=== PATIENT | male | born 1985 | race African-American/Black ===

== ENCOUNTER 2016-10-09 04:32 | Inpatient (IN) | payer MEDICAID ==
[~2016-10-09] VITALS: Ht 165.1 cm; Wt 66.7 kg
[2016-10-09] MEDS ORDERED: SODIUM CHLORIDE 0.9% 1,000 ML IV ONE (05:22)
[2016-10-09] MEDS ORDERED: SODIUM CHLORIDE FLUSH 10ML SYR IVF ONE (05:30)
[2016-10-09] MEDS ORDERED: ACETAMINOPHEN 325 MG TABLET PO ONE (05:30)
[2016-10-09] MEDS ORDERED: ACETAMINOPHEN 325 MG TABLET ONE (05:56)
[2016-10-09] MEDS ORDERED: CEFTRIAXONE PMX 1GM/50ML 50 ML IVPB ONE (06:00)
[2016-10-09] MEDS ORDERED: AZITHROMYCIN 500 MG in SODIUM CHLORIDE 0.9% 250 ML IV ONE (06:00)
[2016-10-09 06:43] LABS: HEMOGLOBIN 11.6 g/dL (13.7-18.0)
[2016-10-09 06:54] LABS: ASPARTATE AMINO TRANSFERASE 18 U/L (15-37); BLOOD UREA NITROGEN 14 mg/dL (7-18)
[2016-10-09 07:09] LABS: IS PT STATUS REG ER OR PRE ER? YES
[2016-10-09] MEDS ORDERED: SODIUM CHLORIDE FLUSH 10ML SYR IVF PRN (07:30)
[2016-10-09] MEDS: NS + 20MEQ KCL 1,000 ML IV SCH ×3 (07:43→23:43)
[2016-10-09] MEDS ORDERED: DOCUSATE 100 MG CAPSULE PO PRN (08:00)
[2016-10-09] MEDS ORDERED: POLYETHYLENE GLYCOL 17 GM PACKET PO PRN (08:00)
[2016-10-09] MEDS ORDERED: KETOROLAC 30 MG/1 ML IVPush PRN (08:00)
[2016-10-09] MEDS ORDERED: ONDANSETRON 2MG/ML, 2ML IVP PRN (08:00)
[2016-10-09] MEDS ORDERED: ACETAMINOPHEN 325 MG TABLET PO PRN (08:00)
[2016-10-09] MEDS: NICOTINE 7 MG/24 HR PATCH.TD24 TD SCH (08:00)
[2016-10-09] MEDS ORDERED: BISACODYL 10 MG SUPP PR PRN (08:00)
[2016-10-09] MEDS: ENOXAPARIN 40 MG/0.4 ML SQ SCH (08:00)
[2016-10-09] MEDS ORDERED: CEFTRIAXONE PMX 1GM/50ML 50 ML IV SCH (08:00)
[2016-10-09] MEDS ORDERED: LABETALOL 5MG/ML, 20ML IV PRN (08:00)
[2016-10-09] MEDS ORDERED: NS + 20MEQ KCL 1,000 ML IV ONE (08:09)
[2016-10-09] MEDS ORDERED: CEFTRIAXONE PMX 1GM/50ML 50 ML ONE (08:09)
[2016-10-09] MEDS: GUAIFENESIN ER 600 MG TABLET PO SCH ×2 (09:00→19:45)
[2016-10-09 10:20] VITALS: BP 106/69
[2016-10-09] MEDS: DOXYCYCLINE 100 MG in DEXTROSE 5% 250 ML IV SCH ×2 (10:55→19:45)
[2016-10-09 13:42] VITALS: BP 113/72
[2016-10-09 19:31] VITALS: BP 101/65
[2016-10-10 01:44] VITALS: BP 109/71
[2016-10-10] MEDS: CEFTRIAXONE PMX 1GM/50ML 50 ML IV SCH (04:04)
[2016-10-10 06:36] LABS: HEMOGLOBIN 12.1 g/dL (13.7-18.0)
[2016-10-10 06:53] LABS: BLOOD UREA NITROGEN 7 mg/dL (7-18)
[2016-10-10] MEDS: ENOXAPARIN 40 MG/0.4 ML SQ SCH (08:00)
[2016-10-10] MEDS: NICOTINE 7 MG/24 HR PATCH.TD24 TD SCH (08:00)
[2016-10-10 08:59] VITALS: BP 112/74
[2016-10-10] MEDS: GUAIFENESIN ER 600 MG TABLET PO SCH ×2 (09:00→22:27)
[2016-10-10] MEDS: DOXYCYCLINE 100 MG in DEXTROSE 5% 250 ML IV SCH ×2 (10:28→22:28)
[2016-10-10 14:52] VITALS: BP 113/78
[2016-10-10 17:52] VITALS: BP 111/78
[2016-10-10 18:28] VITALS: BP 120/86
[2016-10-11 00:38] VITALS: BP 98/68
[2016-10-11] MEDS: CEFTRIAXONE PMX 1GM/50ML 50 ML IV SCH (04:03)
[2016-10-11 07:52] VITALS: BP 120/72
[2016-10-11] MEDS: ENOXAPARIN 40 MG/0.4 ML SQ SCH (08:00)
[2016-10-11] MEDS: NICOTINE 7 MG/24 HR PATCH.TD24 TD SCH (08:00)
[2016-10-11] MEDS: DOXYCYCLINE 100 MG in DEXTROSE 5% 250 ML IV SCH (10:00)
[2016-10-11] MEDS ORDERED: DOXY100T PO (10:14)
[2016-10-11] MEDS ORDERED: CEFD300C2 PO (10:14)
[2016-10-11] MEDS: GUAIFENESIN ER 600 MG TABLET PO SCH (10:39)
[2016-10-11] MEDS ORDERED: PNEUMOCOCCAL 23 VACCINE IM-VACC ONE (12:00)
[2016-10-11] MEDS ORDERED: FLU VACC QS2016-17 (36MOS+)UP/PF 0.5 ML IM-VACC ONE (12:00)
== END 2016-10-11 12:40 | disposition home or self-care (01) | DRG 871 ==
LOC: ED 07:24 → EDIP 07:25 → ED 07:36 → 3NW 10:13 → 3NE 10-10 17:48 → DCLOUNGE 10-11 12:32
PROVIDERS: ADMIT Internal Medicine; ATTEND Internal Medicine
DX: A41.9 Sepsis, unspecified organism (principal); J18.9 Pneumonia, unspecified organism; E44.0 Moderate protein-calorie malnutrition; F17.210 Nicotine dependence, cigarettes, uncomplicated; D50.9 Iron deficiency anemia, unspecified; Z23 Encounter for immunization; Z68.24 Body mass index [BMI] 24.0-24.9, adult
CPT/HCPCS: 36415; 71010; 80048; 80053; 82728; 83540; 83550; 83605; 83880; 84466; 84484; 85025; 85610; 85730; 87040; 90686; 90732; 93005; 96365; 96366; J0456; J0696; J3480; J7060; J7030; J7050

== ENCOUNTER 2017-01-12 20:17 | Emergency (ER) | payer MEDICAID ==
[~2017-01-12] VITALS: Ht 167.6 cm; Wt 68.6 kg
[~2017-01-12 20:17] MED LIST: CEFD300C37 PO; DOXY100T PO
[2017-01-12 20:19] VITALS: BP 126/82
== END 2017-01-12 22:20 | disposition home or self-care (01) ==
LOC: ED 22:00
DX: S63.501A Unspecified sprain of right wrist, initial encounter (principal); S93.401A Sprain of unspecified ligament of right ankle, initial encounter; Z87.01 Personal history of pneumonia (recurrent); W01.0XXA Fall on same level from slipping, tripping and stumbling without subsequent striking against object, initial encounter; Y93.89 Activity, other specified; Y92.410 Unspecified street and highway as the place of occurrence of the external cause; Y99.8 Other external cause status
CPT/HCPCS: 29125